=== PATIENT | male | born 1950 | race Two or more races ===

== ENCOUNTER 2020-10-13 13:23 | Emergency (ER) | payer MEDICARE, MEDICAID ==
[~2020-10-13] VITALS: Ht 172.7 cm; Wt 54.4 kg
--- NOTE | 2020-10-13 13:45 | NUR ---
ED Nurse Note: Pt brought in by c/o N/V with weakness since Monday. Denies diarrhea. Hx of CVA. nad noted, bp 164/77, other vss
[2020-10-13 14:06] LABS: BASOPHILS % (AUTO) 1.8 % (0.0-2.0); EOSINOPHILS % (AUTO) 1.1 % (0.0-3.0); HEMATOCRIT 40.5 % (42.0-52.0); HEMOGLOBIN 12.9 G/DL (14.2-18.0); LYMPHOCYTES % (AUTO) 27.4 % (20.0-45.0); MEAN CORPUSCULAR VOLUME 93 FL (80-99); MONOCYTES % (AUTO) 10.2 % (1.0-10.0); NEUTROPHILS % (AUTO) 59.5 % (45.0-75.0); PLATELET COUNT 374 K/UL (150-450); RED BLOOD COUNT 4.37 M/UL (4.70-6.10); RED CELL DISTRIBUTION WIDTH 17.9 % (11.6-14.8); WHITE BLOOD COUNT 5.7 K/UL (4.8-10.8)
[2020-10-13 14:25] LABS: ANION GAP 9 mmol/L (5-15); BLOOD UREA NITROGEN 11 mg/dL (7-18); CALCIUM 9.6 MG/DL (8.5-10.1); CARBON DIOXIDE 29 MMOL/L (21-32); CHLORIDE 100 MMOL/L (98-107); CREATININE 1.1 MG/DL (0.55-1.30); POTASSIUM 3.2 MMOL/L (3.5-5.1); SODIUM 138 MMOL/L (136-145)
[2020-10-13 14:29] LABS: ALANINE AMINOTRANSFERASE 56 U/L (12-78); ALBUMIN 3.2 G/DL (3.4-5.0); ALBUMIN/GLOBULIN RATIO 0.8 (1.0-2.7); ALKALINE PHOSPHATASE 222 U/L (46-116); ASPARTATE AMINO TRANSFERASE 26 U/L (15-37); BILIRUBIN,TOTAL 0.3 MG/DL (0.2-1.0)
[2020-10-13 14:34] VITALS: BP 158/88
[2020-10-13 15:59] LABS: APPEARANCE,URINE CLEAR; BILIRUBIN, URINE NEGATIVE (NEGATIVE); COLOR,URINE PALE YELLOW; GLUCOSE, URINE (UA) NEGATIVE (NEGATIVE); KETONES,URINE 1+ (NEGATIVE); LEUKOCYTE ESTERASE ,URINE 1+ (NEGATIVE); NITRITE,URINE NEGATIVE (NEGATIVE); PH,URINE 8 (4.5-8.0); PROTEIN,URINE 2+ (NEGATIVE); UROBILINOGEN,URINE NORMAL MG/DL (0.0-1.0)
--- NOTE | 2020-10-13 16:14 | Diagnostic Imaging Report ---
Procedure: XRAY Chest 1v Reason for study: Cough. Comparison films: None. FINDINGS: A single one view chest is obtained. Vascularity is normal. The lung hurtado are clear bilaterally. Cardiac and mediastinal silhouette are within normal limits. CP angles are sharp. The bony thorax appear unremarkable. IMPRESSION: NO ACUTE CARDIOPULMONARY DISEASE.
[2020-10-13] MEDS ORDERED: FOLIC ACID1 MG ORAL (17:48)
[2020-10-13] MEDS ORDERED: MULTIVITAMINS1 EAC2 ORAL (17:48)
[2020-10-13] MEDS ORDERED: OYSCO 500+D TA1 EAC1 PO (17:48)
[2020-10-13] MEDS ORDERED: MELATONIN10 M4 PO (17:48)
[2020-10-13] MEDS ORDERED: AMLODIPINE BESY10 MG ORAL (17:49)
[2020-10-13] MEDS ORDERED: DITROPAN10 MG ORAL (17:49)
[2020-10-13] MEDS ORDERED: ROBAXIN-500MG ORAL (17:49)
[2020-10-13] MEDS ORDERED: ATORVASTATIN CA40 MG ORAL (17:49)
[2020-10-13] MEDS ORDERED: LEXAPRO10 MG ORAL (17:49)
[2020-10-13] MEDS ORDERED: FLOMAX0.4 MG ORAL (17:49)
[2020-10-13] MEDS ORDERED: PLAVIX75 MG ORAL (17:49)
[2020-10-13] MEDS ORDERED: GABAPENTIN600 MG ORAL (17:49)
[2020-10-13] MEDS ORDERED: BACLOFEN10 MG ORAL (17:49)
[2020-10-13] MEDS ORDERED: PROSCAR5 MG ORAL (17:49)
[2020-10-13 18:55] VITALS: BP 108/63
--- NOTE | 2020-10-13 19:20 | NUR ---
HAND-OFF: Report given to geovanny gaspar.
--- NOTE | 2020-10-13 19:21 | NUR ---
ED Nurse Note: Report received from MARGARITO AGUILAR/ MARCIA AGUILAR
[2020-10-13] MEDS ORDERED: CEPHALEXIN500 MG ORAL ×3 (19:23→19:54)
[2020-10-13] MEDS ORDERED: FAMOTIDINE20 MG ORAL ×3 (19:23→19:54)
[2020-10-13] MEDS ORDERED: ONDANSETRON ODT4 MG BC ×3 (19:23→19:54)
--- NOTE | 2020-10-13 20:20 | NUR ---
ER DISCHARGE NOTE: Patient is cleared to be discharged per ERMD, pt is aox4, on room air, with stable vital signs. pt and comppanion was given dc and prescription instructions, pt and rn discharge was able to verbalize understanding, pt id band and iv site removed without complications. pt was transferred to private vehicle with RN and mri ct tech assistance. pt took all belongings.
[2020-10-13 20:22] VITALS: BP 112/76
--- NOTE | 2020-10-13 22:28 | Emergency Room Report ---
History of Present Illness General Chief Complaint: Vomiting Source: Patient, Significant Other Present Illness HPI 70-year-old male presents for vomiting. Brought in by home running from home. at bedside states that patient's been vomiting for the last 2 days. Noted some diarrhea. Denies any abdominal pain. Has any fevers or chills. Denies chest pain. Denies sick contacts or recent travel. No known Covid exposure. No other aggravating relieving factors. Denies any other associated symptoms Allergies: Coded Allergies: No Known Allergies (Unverified , 10/13/20) COVID-19 Screening Contact w/high risk pt: No Experienced COVID-19 symptoms?: No COVID-19 Testing performed [employer]: Yes COVID-19 Screening: Negative COVID-19 COVID-19 Testing Source: [facility] 2 months ago Patient History Past Medical History: HTN Past Surgical History: none Pertinent Family History: none Social History: Denies: smoking, alcohol use, drug use Immunizations: UTD Reviewed Nursing Documentation: PMH: Agreed; PSxH: Agreed Nursing Documentation-PMH Hx Cardiac Problems: Yes Hx Hypertension: Yes Hx Gastrointestinal Problems: Yes Hx Dialysis: No History Of Psychiatric Problem: No Hx Neurological Problems: No Review of Systems All Other Systems: negative except mentioned in HPI Physical Exam Vital Signs Date Time Temp Pulse Resp B/P (MAP) Pulse Ox O2 Delivery O2 Flow Rate FiO2 10/13/20 13:42 98.4 81 20 158/88 (111) 97 Room Air Sp02 EP Interpretation: reviewed, normal General Appearance: no apparent distress, alert, GCS 15, non-toxic Head: normocephalic, atraumatic Eyes: bilateral eye normal inspection, bilateral eye PERRL ENT: hearing grossly normal, normal pharynx, no angioedema, normal voice Neck: full range of motion, supple/symm/no masses Respiratory: chest non-tender, lungs clear, normal breath sounds, speaking full sentences Cardiovascular #1: regular rate, rhythm, no edema Cardiovascular #2: 2+ carotid (R), 2+ carotid (L), 2+ radial (R), 2+ radial (L), 2+ dorsalis pedis (R), 2+ dorsalis pedis (L) Gastrointestinal: normal bowel sounds, non tender, soft, non-distended, no guarding, no rebound Rectal: deferred Genitourinary: normal inspection, no CVA tenderness Musculoskeletal: back normal, normal range of motion, gait/station normal, non- tender Neurologic: alert, motor strength/tone normal, oriented x3, sensory intact, responsive, speech normal Psychiatric: judgement/insight normal, memory normal, mood/affect normal, no suicidal/homicidal ideation Reflexes: 3+ bicep (R), 3+ bicep (L), 3+ tricep (R), 3+ tricep (L), 3+ knee (R), 3+ knee (L) Lymphatic: no adenopathy Medical Decision Making Diagnostic Impression: Primary Impression: Vomiting Qualified Codes: R11.10 - Vomiting, unspecified ER Course Hospital Course 70-year-old male presents with vomiting differential diagnosis: gastritis, SBO, cholecystits Clinical course Patient placed on stretcher. On radiographer cardiac catheterization. After initial history and physical I ordered labs, IV fluids, Zofran and said, EKG, chest x-ray Labs - no leukocytosis, no electrolyte abnormalities, LFTs normal, troponin negative UA some bacteria noted EKGnormal sinus rhythm no acute ischemic changes interpreted by me chest X-rayno acute process Rapid Covid negative. I discussed findings with patient and . Patient appeared still nauseous and discussed option of admission. after endorsement to transferring facility patient in state that patient feels better and they prefer to be discharged at this time. I agree. States he will follow-up with his PMD Upon reassessment, patient states pain has improved. findings consistent with gastritis I feel this is a highly complex case requiring extensive working including EKG/Rhythm strip, Xray/CT/US, Blood/urine lab work, repeat exams while in ED, and administration of strong opiates/narcotics for pain control, admission to hospital or close patient follow up. Diagnosis - vomiting Stable and discharged to home with prescriptions for pepcid, zofran, keflex. Followup with PMD. Return to ED if symptoms recur or worsen Laboratory Tests Test 10/13/20 13:49 10/13/20 14:05 10/13/20 15:34 White Blood Count 5.7 K/UL (4.8-10.8) Red Blood Count 4.37 M/UL (4.70-6.10) L Hemoglobin 12.9 G/DL (14.2-18.0) L Hematocrit 40.5 % (42.0-52.0) L Mean Corpuscular Volume 93 FL (80-99) Mean Corpuscular Hemoglobin 29.5 PG (27.0-31.0) Mean Corpuscular Hemoglobin Concent 31.7 G/DL (32.0-36.0) L Red Cell Distribution Width 17.9 % (11.6-14.8) H Platelet Count 374 K/UL (150-450) Mean Platelet Volume 7.3 FL (6.5-10.1) Neutrophils (%) (Auto) 59.5 % (45.0-75.0) Lymphocytes (%) (Auto) 27.4 % (20.0-45.0) Monocytes (%) (Auto) 10.2 % (1.0-10.0) H Eosinophils (%) (Auto) 1.1 % (0.0-3.0) Basophils (%) (Auto) 1.8 % (0.0-2.0) Sodium Level 138 MMOL/L (136-145) Potassium Level 3.2 MMOL/L (3.5-5.1) L Chloride Level 100 MMOL/L (98-107) Carbon Dioxide Level 29 MMOL/L (21-32) Anion Gap 9 mmol/L (5-15) Blood Urea Nitrogen 11 mg/dL (7-18) Creatinine 1.1 MG/DL (0.55-1.30) Estimat Glomerular Filtration Rate > 60 mL/min (>60) Glucose Level 109 MG/DL (74-106) H Calcium Level 9.6 MG/DL (8.5-10.1) Total Bilirubin 0.3 MG/DL (0.2-1.0) Aspartate Amino Transf (AST/SGOT) 26 U/L (15-37) Alanine Aminotransferase (ALT/SGPT) 56 U/L (12-78) Alkaline Phosphatase 222 U/L (46-116) H Total Protein 7.2 G/DL (6.4-8.2) Albumin 3.2 G/DL (3.4-5.0) L Globulin 4.0 g/dL Albumin/Globulin Ratio 0.8 (1.0-2.7) L Lipase 407 U/L (73-393) H Prothrombin Time 11.2 SEC (9.30-11.50) Prothromb Time International Ratio 1.0 (0.9-1.1) Activated Partial Thromboplast Time 28 SEC (23-33) Troponin I 0.006 ng/mL (0.000-0.056) Urine Color Pale yellow Urine Appearance Clear Urine pH 8 (4.5-8.0) Urine Specific [place] 1.010 (1.005-1.035) Urine Protein 2+ (NEGATIVE) H Urine Glucose (UA) Negative (NEGATIVE) Urine Ketones 1+ (NEGATIVE) H Urine Blood Negative (NEGATIVE) Urine Nitrite Negative (NEGATIVE) Urine Bilirubin Negative (NEGATIVE) Urine Urobilinogen Normal MG/DL (0.0-1.0) Urine Leukocyte Esterase 1+ (NEGATIVE) H Urine RBC 0 /HPF (0 - 0) Urine WBC 10-15 /HPF (0 - 0) H Urine Squamous Epithelial Cells Occasional /LPF Urine Bacteria Few /HPF (NONE) Urine Mucus Moderate /LPF (NONE/OCC) H EKG Diagnostic Results Rate: normal Rhythm: NSR ST Segments: no acute changes ASA given to the pt in ED: No Rhythm Strip Diag. Results EP Interpretation: yes Rhythm: NSR, no PVC's, no ectopy Chest X-Ray Diagnostic Results Chest X-Ray Diagnostic Results : Chest X-Ray Ordered: Yes # of Views/Limited/Complete: 1 View Indication: Other EP Interpretation: Yes Interpretation: no consolidation, no effusion, no pneumothorax, no acute cardiopulmonary disease Impression: No acute disease Electronically Signed by: Electronically signed by Rojelio Domingo MD Last Vital Signs Date Time Temp Pulse Resp B/P (MAP) Pulse Ox O2 Delivery O2 Flow Rate FiO2 10/13/20 20:22 98.4 68 20 112/76 97 Room Air Status: improved Disposition: HOME, SELF-CARE Condition: Stable Scripts Cephalexin* (KEFLEX*) 500 Mg Capsule 500 MG ORAL EVERY 6 HOURS for 7 Days, #28 CAP Prov: Rojelio Domingo MD 10/13/20 Ondansetron Odt* (ZOFRAN ODT*) 4 Mg Tab.rapdis 4 MG BC EVERY 6 HOURS PRN for Nausea & Vomiting, #20 TAB 0 Refills Prov: Rojelio Domingo MD 10/13/20 Famotidine* (Pepcid 20mg tablet*) 20 Mg Tablet 20 MG ORAL DAILY for Gerd, #30 TAB 0 Refills Prov: Rojelio Domingo MD 10/13/20 Referrals: NON PHYSICIAN (PCP) Patient Instructions: Nausea and Vomiting, Adult Rojelio Domingo MD Oct 13, 2020 22:28
== END 2020-10-13 20:23 | disposition home or self-care (01) ==
LOC: EMR 13:55
DX: R11.10 Vomiting, unspecified (principal); I11.9 Hypertensive heart disease without heart failure
CPT/HCPCS: 36415; 71045; 80053; 81003; 83690; 84484; 85025; 85610; 85730; 87086; 93005; 96361; 96374; 96375; 96376; 99284; J2405; J7030; S0028; U0002; U0004